=== PATIENT | male | born 1955 | race Caucasian/White ===

== ENCOUNTER 2018-09-25 18:34 | Observation (INO) | payer SELFPAY ==
[~2018-09-25 18:34] MED LIST: ISOVUE-370 76%-LOCM 1 ML ONE
[2018-09-25 19:35] LABS: #Basophils 0.1 thou/uL (0.0-0.2); #Eosinphils 0.2 thou/uL (0.0-0.7); #Lymphocytes 2.4 thou/uL (1.20-3.40); #Monocytes 0.7 thou/uL (0.11-0.59); #Neutrophils 2.6 thou/uL (1.40-6.50); %Basophils 0.9 % (0.0-1.0); %Eosinophils 3.5 % (0.0-10.0); %Lymphocytes 41.2 % (21.0-51.0); %Monocytes 11.3 % (0.0-10.0); %Neutrophils 43.1 % (42.0-75.0); Hemoglobin 14.2 g/dL (14.0-18.0); Mean Corpuscular HGB CONC 31.5 g/dL (32.0-36.0); Mean Corpuscular Hemoglobin 29.1 pg (27.0-31.0); Mean Corpuscular Volume 92.3 fL (78.0-98.0); Platelet Count 224 thou/uL (130-400); RBC Distribution Width 11.4 % (11.5-14.5); Red Blood Cell (RBC) Count 4.88 mill/uL (4.70-6.10); White Blood Cell (WBC) Count 5.9 thou/uL (4.8-10.8)
[2018-09-25 19:42] LABS: INR-International Normal Ratio 0.9; Prothrombin Time 12.7 SEC (12.0-14.7)
[2018-09-25 19:43] LABS: PTT 28.3 SEC (22.9-36.1)
[2018-09-25 19:53] LABS: CK (CPK) 104 U/L (30-200); Lipase 9 U/L (8-78)
--- NOTE | 2018-09-25 20:05 | RAD ---
FRONTAL VIEW CHEST 09/25/18 INDICATION: Chest pain. No prior comparison. FINDINGS: The lungs are clear. There is no effusion or pneumothorax. The cardiac silhouette is accentuated by p ortable technique. Osseous structures are intact. IMPRESSION: No focal consolidation. POS: [facility]
[2018-09-25 20:54] LABS: ALT (SGPT) 31 U/L (8-55); AST (SGOT) 21 U/L (5-34); Albumin 4.2 g/dL (3.4-4.8); Alkaline Phosphatase 70 U/L (40-150); Anion Gap 14 mmol/L (10-20); BUN (Urea Nitrogen) 10 mg/dL (8.4-25.7); Bilirubin, Total 0.5 mg/dL (0.2-1.2); Calc. Creatinine Clearance 0 mL/min (70-130); Carbon Dioxide 26 mmol/L (23-31); Chloride 102 mmol/L (98-107); Estimated GFR-MDRD 74; Globulin 3.3 g/dL (2.4-3.5); Glucose 80 mg/dL (80-115); Protein, Total 7.5 g/dL (5.8-8.1); Sodium 138 mmol/L (136-145)
--- NOTE | 2018-09-25 21:31 | CT ---
HEAD CT NONCONTRAST: 09/25/18 INDICATION: Chest pain, right arm numbness and paresthesias. FINDINGS: There is no evidence of acute intracranial hemorrhage, mass effect, midline shift or ventriculomegaly . Imaged paranasal sinuses are clear. Calvarium is intact. IMPRESSION: There are scattered areas of hypoattenuation of the cerebral hemispheres favoring microvascular ische renetta disease. IMPRESSION: 1. No acute intracranial hemorrhage or mass effect. 2. Mild chronic microvascular ischemic disease. POS: [facility]
[2018-09-25] MEDS ORDERED: Aspirin Chewable 81 MG TAB ONE (22:03)
--- NOTE | 2018-09-25 22:31 | CT ---
CT ANGIOGRAM OF THE THORACIC AND ABDOMINAL AORTA 09/25/18 HISTORY: Chest pain. Numbness and tingling. Evaluate for dissection. COMPARISON: None. TECHNIQUE: CT angiogram of the thoracic and abdominal aorta performed in the axial plain. Three dimensional refo rmatted images are submitted for interpretation. FINDINGS: CHEST CT: 1 cm hypodensity in the right thyroid lobe, incompletely evaluated. Axilla are unremarkable. No mediastinal mass, lymphadenopathy or hematoma. Heart size is within normal limits. No pericardial effusion. There is adequate contrast opacification of the pulmonary arterial system to the level of t he lobar arteries. No filling defect to suggest thromboembolism. Trachea and central bronchi are ramos nt. No masses or consolidation. No pleural effusion or pneumothorax. CT ABDOMEN: Hypoattenuation of liver due to hepatic steatosis. Spleen, pancreas, and adrenal glands are unremarka ble. Unremarkable gallbladder. Symmetric enhancement of the kidneys. Exophytic hypodensities emanating from the right kidney have at tenuation coefficients of 26 and 33 Hounsfield units. Largest lesion measures 4.1 x 3.9 cm. The seco nd lesion, slightly smaller, measures 2.8 x 2.5 cm. Bilaterally, no obstructive uropathy. No mesenteric mass, lymphadenopathy, free air or free fluid. Limited evaluation of the alimentary canal due to lack of oral contrast. Moderate hiatal hernia is no lucio. Multiple normal caliber small bowel loops. Ileocecal junction cannot be assessed. Colon is unre markable. There are scattered diverticula. CT ANGIOGRAM: The aortic root, ascending thoracic aorta, aortic arch, descending thoracic aorta, abdominal aorta an d the aortic bifurcation have appropriate enhancement and luminal diameter. The origin of the great v essels of the neck are unremarkable. Celiac artery origin, superior mesenteric artery origin, bilateral renal artery ostia, inferior mesen teric artery origins and visualized iliac arteries are unremarkable. No significant stenosis. No aneu rysm or dissection in the visualized vessels. IMPRESSION: 1. No evidence of aneurysm or dissection. 2. Additional findings as detailed above. 3. Lesions in right kidney may represent complex cysts. Confirmation with nonemergent right lindsay l ultrasound. 4. Indeterminate lesion in the right thyroid lobe. Nonemergent ultrasound is recommended. POS: [facility]
[2018-09-25 23:41] LABS: Troponin I Less than 0.010 ng/mL (< 0.028)
--- NOTE | 2018-09-25 23:46 | PDOC.FPRHP ---
- History of Present Illness Chief Complaint: L arm numbness, vision change, heartburn History of Present Illness: 63 yo previously healthy M presents with L arm numbness and weakness that began in his thumb around 1630 today and spread up his left arm. He also started having vision blurriness and "heartburn" which is unusual for him in the daytime. He is having sharp, substernal chest pain that does not radiate. He denies nausea/vom, palpitations, or diaphoresis. Family history of father who of HI in his 40s. In the ED, ER physician reported 3/5 weakness in L hand. CXR wnl, CT brain wnl. CT abd showed complex cyst and no aortic dissection. EKG WNL, Trop neg, BNP normal. - Allergies/Adverse Reactions Allergies Allergy/AdvReac Type Severity Reaction Status Date / Time No Known Allergies Allergy Verified 09/26/18 01:20 - Home Medications Medication Instructions Recorded Confirmed Type No Known 09/26/18 09/26/18 History - History PMHx: GERD PSHx: hiatal hernia repair FHx: Cardiac -father had heartattach in 50s; denied hx cancer; +family hx diabetes; +Htn in father Social: nonsmoker, 2 beers/month alcohol use; denied illicit drug use - Review of Systems General: denies: fever/chills, weight/appetite/sleep changes, night sweats, other (denied headache) Eyes: reports: vision changes. denies: eye pain ENT: denies: nasal congestion, rhinorrhea Respiratory: denies: cough, congestion Cardiovascular: reports: chest pain. denies: palpitation Gastrointestinal: denies: nausea, vomiting, diarrhea, constipation, abdominal pain, GI bleeding Genitourinary: denies: incontinence, dysuria, polyuria Skin: denies: rashes, lesions Neurological: reports: numbness, weakness Psychological: denies: anxiety, depression - Vital signs BP: [125/74] HR: [63] RR: [20] Tmax: [98.4] Pox: [97]% on [RA] Wt: [119 kg] - Physical Exam Constitutional: NAD, awake, alert and oriented HEENT: normocephalic and atraumatic, PERRLA, EOMI, MMM, oropharynx clear, good dention Neck: supple, no LAD Heart: RRR, normal S1/S2, no murmurs/rubs/gallops, pulses present, no edema Lungs: CTAB, no respiratory distress, good air movement, no rales/rhonchi, no wheezing, no retractions Abdomen: soft, non-tender, bowel sounds present Musculoskeletal: normal structure, normal tone, ROM grossly normal Neurological: no focal deficit, CN II-XII intact, normal sensation Skin: no rash/lesions, good turgor, capillary refill <2 seconds, no jaundice Heme/Lymphatic: no unusual bruising or bleeding, no purpura, no petechia Psychiatric: normal mood and affect, good judgment and insight, intact recent and remote memory FMR H&P: Results - Labs Result Diagrams: 09/25/18 19:23 09/25/18 19:17 Lab results: WBC 5.9 thou/uL (4.8-10.8) 09/25/18 19:23 Hgb 14.2 g/dL (14.0-18.0) 09/25/18 19:23 Hct 45.0 % (42.0-52.0) 09/25/18 19:23 MCV 92.3 fL (78.0-98.0) 09/25/18 19:23 Plt Count 224 thou/uL (130-400) 09/25/18 19:23 Neutrophils % 43.1 % (42.0-75.0) 09/25/18 19:23 Sodium 138 mmol/L (136-145) 09/25/18 19:17 Potassium 4.0 mmol/L (3.5-5.1) 09/25/18 19:17 Chloride 102 mmol/L (98-107) 09/25/18 19:17 Carbon Dioxide 26 mmol/L (23-31) 09/25/18 19:17 BUN 10 mg/dL (8.4-25.7) 09/25/18 19:17 Creatinine 1.02 mg/dL (0.7-1.3) 09/25/18 19:17 Glucose 80 mg/dL (80-115) 09/25/18 19:17 Calcium 10.0 mg/dL (7.8-10.44) 09/25/18 19:17 Total Bilirubin 0.5 mg/dL (0.2-1.2) 09/25/18 19:17 AST 21 U/L (5-34) 09/25/18 19:17 ALT 31 U/L (8-55) 09/25/18 19:17 Alkaline Phosphatase 70 U/L (40-150) 09/25/18 19:17 Creatine Kinase 104 U/L (30-200) 09/25/18 19:23 B-Natriuretic Peptide 12.8 pg/mL (0-100) 09/25/18 19:23 Serum Total Protein 7.5 g/dL (5.8-8.1) 09/25/18 19:17 Albumin 4.2 g/dL (3.4-4.8) 09/25/18 19:17 Lipase 9 U/L (8-78) 09/25/18 19:23 - EKG Interpretation EKG: EKG- wnl - Radiology Interpretation CT scan - abdomen Status: image reviewed by me, report reviewed by me Additional comment: Complex cyst in kidney Thyroid nodule No aneurysm or dissection CT scan - head Status: report reviewed by me Additional comment: Some chronic ischemic changes FMR H&P: A/P - Problem List (1) GERD (gastroesophageal reflux disease) Current Visit: Yes Status: Chronic Code(s): K21.9 - GASTRO-ESOPHAGEAL REFLUX DISEASE WITHOUT ESOPHAGITIS (2) Thyroid nodule Current Visit: Yes Status: Acute Code(s): E04.1 - NONTOXIC SINGLE THYROID NODULE (3) Complex renal cyst Current Visit: Yes Status: Acute Code(s): N28.1 - CYST OF KIDNEY, ACQUIRED - Plan Concern for TIA/Stroke -NIH 1 for left hand weakness on presentation, seems to have improved. Pt numbness also improved from whole arm to just his thumb. Pt also complained of blurry vision. -CT brain neg -MRI in the AM -US carotid dopplers -FLP -Started atorvastatin 80 mg -ASA 81 mg Atypical CP -EKG WNL, CXR wnl -TSH normal -Trop negx3 -Stress test in the AM -NPO @ midnight -Fam hx of father with HI in early 50s -Started statin Gerd -Pepcid Thyroid nodule -Seen on Ct, 1 cm -Follow up outpatient -TSH normal Complex kidney cyst -Seen on CT -UA pending Dispo: admit to stroke obs Code status: Full code Diet: npo 2 midnight DVT ppx: lovenox FMR H&P: Upper Level - Pertinent history Anjel Manzanares is a 63 is a 63 year old male with past history of GERD who presents to the ED with several hour history of left hand numbness. Pt states that at 4:30 this afternoon as he was sitting down, he noticed that his thumb started to go numb. Over the course of 15 minutes, this progressed to his entire hand and his entire left arm. This was accompanied by "heart burn," blurred vision, and dizziness. He denies diaphoresis, dyspnea, confusion, speech changes, and ataxia. He also denies neck pain and headache. - Pertinent findings BP: 125/74 RR: 20 P: 63 T: 98.4 O2: 97.4 General: Alert and oriented, in no apparent distress. Heart: RRR, no MRG. No reproducible anterior chest wall tenderness. Lungs: clear to auscultation bilaterally. Neuro: CN II-XII intact grossly; No focal motor deficits. Pt still notes some numbness of his left fingertips. Extremities: moves all extremities well. Left sided tenderness to palpation over left AC joint. +Neer's sign. EKG: NST with rate of 75bpm; no evidence of ischemia. CT scan: mild acute chronic microvascular changes. - Plan Date/Time: 09/25/18 [id number] I, Kita Peters, have evaluated this patient and agree with findings/plan as outlined by internet merchant resident. Pertinent changes/additions are listed here. 1. TIA/CVA rule out - ABCD2 score of 2 -will admit pt to stroke floor for observation - CT head showed no acute changes. Will evaluate carotids with Doppler US. - BP wnl. - will order A1C, TSH, FLP for risk stratification. - ASA, Statin 2. ACS rule out. - HEART score of 2 - Trops negative x 2 - will - NPO after midnight for pharm stress. 3.GERD - will add on PPI/H2 ginna 4. Obesity - weight loss encouraged. Addendum - Attending - Attending Attestation Date/Time: 09/26/18 [id number] I personally evaluated the patient and discussed the management with Dr. Martinez I agree with the History, Examination, Assessment and Plan documented above with any addition or exceptions noted below.Based on symptoms and strong FMHX CAD evaluate with chemical stress testing and consider MRI as well on this patient.
[2018-09-26] MEDS ORDERED: Acetaminophen 325 MG TAB PO PRN (00:33)
[2018-09-26] MEDS ORDERED: Acetaminophen 650 MG Suppository PR PRN (00:33)
[2018-09-26 00:53] LABS: Hemoglobin A1c 5.6 % (4.0-6.0)
[2018-09-26 00:59] LABS: Magnesium 2.8 mg/dL (1.6-2.6); Phosphorus 4.1 mg/dL (2.3-4.7)
[2018-09-26 01:16] VITALS: BMI 34.2
[2018-09-26 02:29] LABS: Troponin I Less than 0.010 ng/mL (< 0.028)
[2018-09-26 02:45] LABS: Cardiac Risk 4.8 (Less than 4.5)
[2018-09-26] MEDS ORDERED: Aspirin 81 mg Enteric Coated Tablet PO SCH (09:00)
[2018-09-26] MEDS ORDERED: Famotidine 20 MG TAB PO SCH (09:00)
[2018-09-26] MEDS ORDERED: Enoxaparin Sodium 40 MG/0.4 ML SYRINGE SC SCH (09:00)
[2018-09-26] MEDS ORDERED: ADENOSINE 60 MG/20 ML VIAL ONE (09:22)
--- NOTE | 2018-09-26 09:39 | MRI ---
MRI BRAIN WITHOUT IV CONTRAST: Date: 09-26-18 History: Chest pain. Right arm numbness and paraesthesia. TIA. Comparison: CT head, 09-25-18 FINDINGS: A few scattered punctate areas of increased FLAIR and T2 weighted signal intensity are seen in the pe riventricular and subcortical white matter which are nonspecific but likely reflective of mild chroni c small vessel ischemic changes. There is no evidence of acute infarction. The septum pellucidum and third ventricle are on the midline. The ventricular system is normal in size, shape, and position. Appropriate flow voids are demonstrated at the base of the brain. There is mucosal thickening of a few ethmoidal air cells bilaterally. The remainder of the paranasal sinuses are clear. The orbits and skull base have a normal MRI appearance. There is partial visualization of increased T2 weighted signal intensity seen lateral to the lower as pect of the right parotid gland which is just anterior to the more inferior aspect of the external au ditory canal. This may actually be artifactual and this area is incompletely imaged or evaluated. IMPRESSION: 1. No acute intracranial abnormalities demonstrated. 2. Minimal sinus disease. 3. Incomplete visualization of an area of increased T2 weighted signal intensity just lateral to the right parotid gland which may actually be artifactual. A non-emergent CT scan of the neck with IV con trast may be helpful to ensure that no lesion is present within this location. POS: [facility]
[2018-09-26 09:55] LABS: Bilirubin Negative (Negative); Blood, Urine Negative (Negative); Clarity CLEAR (Clear); Glucose, Urine (Dipstick) Negative (Negative); Leukocyte Negative (Negative); Nitrite Negative (Negative); Protein, Urine (Dipstick) Negative (Neg-Trace); Specific Gravity, Urine 1.042 (1.002-1.036); Urobilinogen 0.2 mg/dL (0.2-1.0); pH, Urine 5.5 (5.0-9.0)
--- NOTE | 2018-09-26 11:56 | ULT ---
CAROTID DOPPLER: DATE: 09/26/2018. PROVIDED CLINICAL HISTORY: TIA. FINDINGS: Mascorro scale and color Doppler sonography with spectral analysis is performed of the extracranial carot id system bilaterally. There is no evidence for a hemodynamically significant internal carotid arter y stenosis by peak systolic velocity or ratio criteria. Antegrade flow is seen in the vertebral soy indira. IMPRESSION: No sonographic evidence for a hemodynamically significant internal carotid artery stenosis. POS: [facility]
[2018-09-26 15:41] VITALS: BP 119/60; TEMP 98
--- NOTE | 2018-09-26 16:28 | NM ---
RADIONUCLIDE STRESS ONLY MYOCARDIAL PERFUSION SCAN WITH CT ATTENUATION CORRECTION AND SPECT IMAGING LEFT VENTRICULAR WALL MOTION EVALUATION AND EJECTION FRACTION 09/26/18 HISTORY: Chest pain. FINDINGS: Adenosine protocol. Homogeneous uptake of the radiotracer throughout the left ventricular myocardium. No focal perfusion defect or reversibility. QGS analysis of gated SPECT images shows no focal all motion abnormalities. Left ventricular ejection fraction is calculated at 53%. IMPRESSION: 1. Normal myocardial perfusion scan showing no evidence of ischemia. 2. Borderline ejection fraction at 53% without focal wall motion abnormality. POS: [facility]
[2018-09-26] MEDS ORDERED: Atorvastatin Calcium 40 MG TAB PO SCH (21:00)
--- NOTE | 2018-09-30 12:34 | DIS ---
DATE OF ADMISSION: 09/25/2018 DATE OF DISCHARGE: 09/26/2018 RESIDENT: Luis Frey DO. ADMITTING ATTENDING: Mayank Banerjee MD. DISCHARGE ATTENDING: Dr. Pearl Fontanez. CONSULTS: None. PROCEDURES: None. IMAGING DATA: CT Ab/pel significant for no evidence of aneurysm or dissection, lesion in the right kidney may represent complex cysts, indeterminate lesion in the right thyroid lobe. Brain CT significant for no acute intracranial hemorrhage or mass effect. Carotid Doppler, no sonographic evidence for a hemodynamically significant internal carotid artery stenosis. Brain MRI significant for no acute intracranial abnormalities, demonstrated minimal sinus disease. Nuclear medicine stress test significant for normal myocardial perfusion scan showing no evidence of ischemia, borderline ejection fraction of 53% without focal wall motion abnormality. PRIMARY DIAGNOSIS: Chest pain, rule out. SECONDARY DIAGNOSES: 1. Transient ischemic attack/stroke, rule out. 2. Gastroesophageal reflux disease. 3. Thyroid nodule. 4. Complex kidney cyst. DISCHARGE MEDICATIONS: 1. Aspirin 81 mg p.o. daily. 2. Lipitor 80 mg p.o. at bedtime. DISCONTINUED MEDICATIONS: None. HISTORY OF PRESENT ILLNESS AND HOSPITAL COURSE: Mr. Manzanares is a 63-year-old male who presents with left arm numbness and weakness to the emergency department that began around 1630 that day and then spread to his left arm. He reported additional cough which is unusual for him in the daytime. He is having sharp substernal chest pain that does not radiate. The patient was admitted for stroke and cardiac workup. Appropriate tests were ordered and came back negative. The patient denied continued chest pain. His vital signs remained stable. The patient was deemed stable for discharge and instructed of possible incidental findings on CT scan including thyroid and kidney cysts. We will follow up with [facility] to further workup these findings. DISPOSITION: Stable. DISCHARGE INSTRUCTIONS: 1. Location: Home. 2. Activity: As tolerated. 3. Diet: Heart-healthy, low-sodium. 4. Followup: Follow up with [facility] in 2 days Job ID: [id number] [id number]
== END 2018-09-26 17:07 | disposition home or self-care (01) ==
LOC: ERS 18:34 → 2SE 22:00
PROVIDERS: ADMIT Family Medicine; ATTEND Family Medicine
DX: R07.89 Other chest pain (principal); K21.9 Gastro-esophageal reflux disease without esophagitis; E04.1 Nontoxic single thyroid nodule; N28.1 Cyst of kidney, acquired; R53.1 Weakness; R20.0 Anesthesia of skin; K76.0 Fatty (change of) liver, not elsewhere classified; F17.220 Nicotine dependence, chewing tobacco, uncomplicated; E66.9 Obesity, unspecified; Z68.34 Body mass index [BMI] 34.0-34.9, adult; Z79.899 Other long term (current) drug therapy
CPT/HCPCS: 36415; 70450; 70551; 71045; 71275; 78452; 80053; 80061; 81003; 82550; 83036; 83690; 83735; 83880; 84100; 84443; 84484; 85025; 85610; 85730; 93005; 93017; 93880; 94760; 96372; A9500; G0378; J0153; J1650; Q9966